=== PATIENT | female | born 1965 ===

== ENCOUNTER → 2022-09-16 | Outpatient (CLI) | payer BC | END | disposition home or self-care (01) | LOC: LAB SHORT 10:30 → LAB 10:30 | DX: R42 Dizziness and giddiness (principal); R11.0 Nausea | CPT/HCPCS: 87086 ==

== ENCOUNTER → 2023-03-10 | Outpatient (CLI) | payer BC | LOC: LAB SHORT 10:21 → LAB 10:21 | DX: M54.9 Dorsalgia, unspecified (principal) | CPT/HCPCS: 87077; 87086; 87186 ==

== ENCOUNTER → 2024-06-14 | Outpatient (CLI) | payer BC | END | disposition home or self-care (01) | LOC: LAB 16:17 → LAB SHORT 16:17 | DX: R30.0 Dysuria (principal) | CPT/HCPCS: 87077; 87086; 87186 ==